=== PATIENT | female | born 1955 | race Caucasian/White ===

== ENCOUNTER 2019-12-27 14:21 | Observation (INO) ==
[2019-12-27] MEDS ORDERED: Ondansetron 4 MG/2 ML VIAL IVP ONE (14:34)
[2019-12-27] MEDS ORDERED: Morphine Sulfate 2 MG/ML SYRINGE IVP PRN (14:50)
[2019-12-27 15:09] LABS: Bilirubin,Urine Negative (Negative); Blood,Urine Large (Negative); Clarity,Urine Clear (Clear); Color,Urine Yellow (Yellow); Glucose,Urine (UA) Normal (Normal); Ketones,Urine Negative (Negative); Leukocyte Esterase,Urine Small (Negative); Nitrite,Urine Negative (Negative); PH,Urine 5.5 pH Units (5.0-8.0); Protein,Urine 100 mg/dL (Neg-Trace); Specific Gravity,Urine >= 1.030 (1.010-1.025); Urobilinogen,Urine Normal (Normal)
[2019-12-27 15:14] LABS: Bacteria,Urine Many per hpf (None-Few); RBC,Urine 0-3 per hpf (0-3); WBC,Urine 15-30 per hpf (0-3)
[2019-12-27 15:28] LABS: Basophils % 0.5 %; Eosinophils # 0.2 K/mcL (0.0-0.6); Eosinophils % 3.9 %; Hematocrit 32.9 % (35.3-44.9); Hemoglobin 10.9 g/dL (11.5-15.4); Immature Granulocytes % 0.8 % (0-4); Lymphocytes # 1.6 K/mcL (0.6-4.6); Mean Corpuscular HGB Conc 33.1 g/dL (31.6-35.5); Mean Corpuscular Volume 87.5 fL (83.0-100.0); Monocytes # 0.4 K/mcL (0.0-1.3); Monocytes % 5.8 %; Neutrophils # 3.9 K/mcL (1.6-8.9); Platelet Count 226 K/mcL (140-400); Red Blood Count 3.76 M/mcL (3.82-4.97); Red Cell Distribution Width 14.8 % (11.5-14.5); White Blood Count 6.2 K/mcL (4.3-11.1)
[2019-12-27 15:51] LABS: Alanine Aminotransferase 38 Units/L (7-52); Albumin 4.5 g/dL (3.5-5.7); Albumin/Globulin Ratio 1.4 (1.1-2.2); Alkaline Phosphatase 98 Units/L (34-104); Aspartate Amino Transferase 27 Units/L (13-39); BUN/Creatinine Ratio 22 (6-26); Bilirubin,Indirect 0.4 mg/dL (0.0-1.0); Bilirubin,Total 0.4 mg/dL (0.3-1.0); Blood Urea Nitrogen 24 mg/dL (8-23); Calcium 10.4 mg/dL (8.6-10.3); Carbon Dioxide 19 mEq/L (23-29); Chloride 105 mEq/L (98-107); Globulin 3.3 g/dL (2.4-3.5); Glucose 197 mg/dL (70-105); Lipase 77 Units/L (11-82); Osmolality,Calculated 296 (280-300); Potassium 4.4 mEq/L (3.5-5.1); Sodium 138 mEq/L (136-145); Total Protein 7.8 g/dL (6.4-8.9); eGFR For African Americans > 60 (> 60); eGFR For Non-African Americans 51 (> 60)
[2019-12-27] MEDS ORDERED: MetroNIDAZOLE 500 MG/100 ML 500 MG/100 ML BAG IVPB ONE (16:31)
[2019-12-27] MEDS ORDERED: *HR* HYDROmorphone (PF) 1 MG/ML SYRINGE IVP ONE (16:45)
[2019-12-27] MEDS ORDERED: *HR* OxyCODONE Immed Rel 5 MG TABLET PO PRN (16:56)
[2019-12-27] MEDS ORDERED: Ondansetron 4 MG/2 ML VIAL IVP PRN (16:56)
[2019-12-27] MEDS ORDERED: Naloxone 0.4 MG/ML INJ IVP PRN (16:56)
[2019-12-27] MEDS ORDERED: Ketorolac 15 MG/ML VIAL IVP PRN (16:56)
[2019-12-27] MEDS ORDERED: Ringers Solution, Lactated 1,000 ML IVC ONE (16:59)
[2019-12-27 17:13] LABS: Magnesium 1.2 mg/dL (1.6-2.6); Phosphorous 3.7 mg/dL (2.7-4.5)
[2019-12-27 17:28] LABS: Creatine Kinase 51 Units/L (30-223)
[2019-12-27] MEDS: gemfibroziL 600 MG TABLET PO SCH (18:54)
[2019-12-27] MEDS: Acetaminophen 325 MG TABLET PO SCH (18:54)
[2019-12-27] MEDS: Metoprolol 100 MG TABLET PO SCH (20:36)
[2019-12-27] MEDS: Gabapentin 100 MG CAPSULE PO SCH (20:36)
[2019-12-27] MEDS: metroNIDAZOLE 500 MG TABLET PO SCH (20:36)
[2019-12-27] MEDS: *HR* Heparin 5,000 UNIT/ML VIAL SQ SCH (20:36)
[2019-12-27] MEDS: Insulin NPH/REG 70/30 100 UNIT/ML (x5UNIT) SQ SCH (20:37)
[2019-12-28 03:52] LABS: BUN/Creatinine Ratio 25 (6-26); Blood Urea Nitrogen 27 mg/dL (8-23); Calcium 9.8 mg/dL (8.6-10.3); Carbon Dioxide 19 mEq/L (23-29); Chloride 107 mEq/L (98-107); Glucose 93 mg/dL (70-105); Magnesium 1.1 mg/dL (1.6-2.6); Osmolality,Calculated 291 (280-300); Potassium 4.2 mEq/L (3.5-5.1); Sodium 138 mEq/L (136-145); eGFR For African Americans > 60 (> 60); eGFR For Non-African Americans 50 (> 60)
[2019-12-28 04:13] LABS: Hematocrit 28.9 % (35.3-44.9); Hemoglobin 9.5 g/dL (11.5-15.4); Mean Corpuscular HGB Conc 32.9 g/dL (31.6-35.5); Mean Corpuscular Hemoglobin 29.5 pg (28.0-33.3); Mean Corpuscular Volume 89.8 fL (83.0-100.0); Mean Platelet Volume 11.4 fL (9.4-12.4); Platelet Count 215 K/mcL (140-400); Red Blood Count 3.22 M/mcL (3.82-4.97); Red Cell Distribution Width 14.8 % (11.5-14.5); White Blood Count 5.8 K/mcL (4.3-11.1)
[2019-12-28] MEDS: Acetaminophen 325 MG TABLET PO SCH ×2 (05:04→12:02)
[2019-12-28] MEDS: *HR* Heparin 5,000 UNIT/ML VIAL SQ SCH (05:05)
[2019-12-28] MEDS: Metoprolol 100 MG TABLET PO SCH (08:42)
[2019-12-28] MEDS: Gabapentin 100 MG CAPSULE PO SCH (08:42)
[2019-12-28] MEDS: metroNIDAZOLE 500 MG TABLET PO SCH (08:42)
[2019-12-28] MEDS: gemfibroziL 600 MG TABLET PO SCH (08:42)
[2019-12-28] MEDS: Insulin NPH/REG 70/30 100 UNIT/ML (x5UNIT) SQ SCH (08:43)
[2019-12-28] MEDS ORDERED: Losartan/HCTZ 50-12.5 TABLET PO SCH (09:00)
[2019-12-28] MEDS ORDERED: amLODIPine 5 MG TABLET PO SCH (09:00)
[2019-12-28 11:57] VITALS: BP 149/71
== END 2019-12-28 14:18 | disposition home or self-care (01) ==
LOC: 3ANU 14:21 → EMEROOARM 14:21 → SUATTDRO 17:20 → 3ANU 18:04
PROVIDERS: ADMIT Internal Medicine; ATTEND Internal Medicine